=== PATIENT | male | born 1945 ===

== ENCOUNTER 2018-07-01 08:43 | Outpatient (CLI) | payer OTHER ==
[~2018-07-01 08:43] MED LIST: CRESTOR20 MG; DUTASTERIDE 0.5 MG; FENOFIBRATE145 MG; LISINOPRIL10 MG; LISINOPRIL20 MG; MULTIVITAMINAS; TAMS0.4C; [UNRECOGNIZED DRUG - OTHER]
== END 2018-07-01 08:50 | disposition home or self-care (01) ==
LOC: SONOGRAMA 08:43
DX: E04.1 Nontoxic single thyroid nodule (principal)

== ENCOUNTER 2022-06-21 09:01 | Outpatient (CLI) | payer OTHER | END 2022-06-21 09:05 | disposition home or self-care (01) | LOC: SONOGRAMA 09:01 | PROVIDERS: ATTEND Pathology Anatomic Pathology & Clinical Pathology | DX: D34 Benign neoplasm of thyroid gland (principal); E04.9 Nontoxic goiter, unspecified; E04.1 Nontoxic single thyroid nodule ==